=== PATIENT | female | born 1995 | race Caucasian/White ===

== ENCOUNTER 2018-02-01 00:53 | Emergency (ER) | payer OTHER ==
[~2018-02-01] VITALS: Ht 172.7 cm; Wt 85.3 kg
--- NOTE | 2018-02-01 01:18 | PHYS DOC ---
Past History Past Medical History: Depression Alcohol Use: None Adult General Chief Complaint Chief Complaint: DEPRESSION HPI HPI Patient is a 22-year-old female who presents to the emergency department for evaluation. She states that she has been battling depression, and been under a lot of stress because her is in the process of her. She states that this evening, after a particularly stressful and depressing interaction with her , she took a knife to her wrist, and made a few abrasions, she states she was not suicidal and did not make any suicidal statements to her , but states she just felt like her mind was "all over the place", and she wanted to feel the pain. She has no prior history of cutting. She states that she did not intend to harm herself and is not actively suicidal at this time. She has not had suicidal thoughts in the past. She states [place], [place] her [place], but she was unable to get on any medication, because apparently the only mental health provider who can prescribe medication will only see active service members. There are no alleviating or exacerbating factors to the patient's symptoms, except the stress that she is under. She states her tetanus is up-to-date. Review of Systems Review of Systems Constitutional: Denies fever or chills [] Eyes: Denies change in visual acuity, redness, or eye pain [] HENT: Denies nasal congestion or sore throat [] Respiratory: Denies cough or shortness of breath [] Cardiovascular:The patient denies any shortness of breath, chest pain, palpitations, or orthopnea [] GI: Denies abdominal pain, nausea, vomiting, bloody stools or diarrhea [] : Denies dysuria or hematuria and denies . [] Musculoskeletal: Denies back pain or joint pain [] Integument: Denies rash or skin lesions [] Neurologic: Denies headache, focal weakness or sensory changes [] Endocrine: Denies polyuria or polydipsia [] All other systems were reviewed and found to be within normal limits, except as documented in this note. Physical Exam Physical Exam PHYSICAL EXAM: CONSTITUTIONAL: Well developed, well nourished HEAD: normocephalic, atraumatic EENT: PERRL, EOMI. Conjunctivae normal color, sclerae non-icteric; moist mucous membranes. NECK: Supple, non-tender; no meningismus. LUNGS: Lungs CTA, breathing even and unlabored. Normal air movement. HEART: Regular rate and rhythm, no murmur CHEST: No deformity; non-tender ABDOMEN: The abdomen is soft, and non-tender, no masses or bruits. EXTREM: Normal ROM; no deformity, no calf tenderness. Normal pulses palpable in all extremities. There is no pedal edema. SKIN: No rash; no diaphoresis NEURO: Alert; normal speech and cognition; CN's grossly intact; strength grossly intact without focal deficit. BACK: No CVA TTP. PSYCHIATRIC: Mildly flat, guarded affect. Denies suicidal ideation. EKG EKG [Normal sinus rhythm with a normal rate, normal axis, normal intervals, there are no acute ischemic ST/T changes.] Radiology/Procedures Radiology/Procedures [] Course & Med Decision Making Course & Med Decision Making Pertinent Labs and Imaging studies reviewed. (See chart for details) [Pt was seen and assessed by Dr Fox, telepsychiatry, and we both agree patient is safe for outpatient f/u. Pt will be given resources for f/u. Continues to deny SI or intent.] Dragon Disclaimer Dragon Disclaimer This electronic medical record was generated, in whole or in part, using a voice recognition dictation system. Departure Departure: Impression: Primary Impression: Depression Disposition: HOME, SELF-CARE Condition: STABLE Referrals: [facility] TO DO, [facility] (PCP) Patient Instructions: Depression, Adult TINA MONTES DE OCA MD Feb 01, 2018 01:18
--- NOTE | 2018-02-01 01:39 | EKG ---
[address] [address] Test Date: 2018-02-01 Test Time: 01:12:36 Pat Name: KAREN MAZA Department: Room: Gender: F Certified Medical Asst: : 1995 Requested By: TINA MONTES DE OCA Order Number: [id number] Reading MD: Nicholas Norman Measurements Intervals [place] Rate: 59 P: 45 CA: 112 QRS: 85 QRSD: 84 T: 33 QT: 374 QTc: 374 Interpretive Statements SINUS RHYTHM Electronically Signed On 02-04-2018 8:44:19 VICE CHANCELLOR by Nicholas Norman
[2018-02-01 01:58] LABS: BASO % 0 % (0-3); EOS # 0.2 x10^3/uL (0.0-0.7); EOS % 2 % (0-3); HEMATOCRIT 42.7 % (36.0-47.0); HEMOGLOBIN 13.9 g/dL (12.0-15.5); LYMPH # 3.7 x10^3/uL (1.0-4.8); LYMPH % 37 % (24-48); MEAN CORPUSCULAR HEMOGLOBIN 29 pg (25-35); MEAN CORPUSCULAR HGB CONC 33 g/dL (31-37); MEAN CORPUSCULAR VOLUME 88 fL (79-100); MONO # 0.7 x10^3/uL (0.0-1.1); MONO % 7 % (0-9); NEUT # 5.4 x10^3uL (1.8-7.7); NEUT % 54 % (31-73); PLATELET COUNT 321 x10^3/uL (140-400); RED BLOOD COUNT 4.84 x10^6/uL (3.50-5.40); RED CELL DISTRIBUTION WIDTH 13.7 % (11.5-14.5)
[2018-02-01 02:07] LABS: BILIRUBIN,URINE NEG (NEG); CLARITY,URINE HAZY; COLOR,URINE YELLOW; GLUCOSE,URINE NEG (NEG)
[2018-02-01 02:08] LABS: BACTERIA,URINE FEW /HPF (0-FEW); NITRITE,URINE NEG (NEG); RBC,URINE 0 /HPF (0-2); SQUAMOUS EPITHELIAL CELL,UR OCC /LPF; UROBILINOGEN,URINE 0.2 mg/dL (0.2 mg/dL)
[2018-02-01 02:09] LABS: PREG TEST PT QUAL NEGATIVE (NEG)
[2018-02-01 02:11] LABS: ACETAMIN < 2.0 mcg/mL (10-30); ALBUMIN 3.7 g/dL (3.4-5.0); CALCIUM 8.6 mg/dL (8.5-10.1); CREATININE 0.8 mg/dL (0.6-1.0); DIRECT BILIRUBIN 0.1 mg/dL (0.0-0.2); ETHANOL < 10 mg/dL (0-10); GFR 91.4; POTASSIUM 3.6 mmol/L (3.5-5.1); SALIC 1.6 mg/dL (2.8-20.0); TOTAL BILIRUBIN 0.2 mg/dL (0.2-1.0); TOTAL PROTEIN 7.3 g/dL (6.4-8.2)
[2018-02-01 02:11] LABS: BARBITURATES NEG (NEG); BENZODIAZEPINES NEG (NEG); CANNABINOIDS POS (NEG); COCAINE NEG (NEG); METHADONE NEG (NEG); OPIATES NEG (NEG); PHENCYCLIDINE NEG (NEG)
[2018-02-01 02:12] LABS: AMPHETAMINE/METHAMPHETAMINE NEG (NEG)
[2018-02-01 03:50] VITALS: BP 113/67
== END 2018-02-01 03:50 | disposition home or self-care (01) ==
LOC: ER 00:53
DX: F32.9 Major depressive disorder, single episode, unspecified (principal)
CPT/HCPCS: 36415; 80048; 80076; 80307; 81001; 84703; 85025; 87086; 93005; 99284; G0480; G6039; 82003